=== PATIENT | male | born 1945 | race Caucasian/White ===

== ENCOUNTER 2022-05-31 15:24 | Emergency (ER) | payer BC, MEDICARE ==
[~2022-05-31] VITALS: Ht 172.7 cm; Wt 79.0 kg
[2022-05-31] MEDS ORDERED: tranexamic acid inj. 1,000 MG in normal saline 100ml IV soln 90 ML IV ONE (16:00)
[2022-05-31] MEDS ORDERED: tranexamic acid 1gm/0.7% sal. 100 ML IV ONE (16:00)
[2022-05-31 16:15] VITALS: BP_DIAS 114
[2022-05-31] MEDS ORDERED: hydrALAZINE 20mg/ml inj. IV ONE (16:30)
[2022-05-31 16:36] LABS: BASOPHILS % (AUTO) 0.3 % (0-1); EOSINOPHILS # (AUTO) 0.1 X10'3 (0-0.9); EOSINOPHILS % (AUTO) 1.2 % (0-6); LYMPHOCYTES # (AUTO) 0.7 X10'3 (1.1-4.8); MEAN PLATELET VOLUME 7.7 FL (7.4-10.4); MONOCYTES # (AUTO) 0.5 X10'3 (0-0.9); MONOCYTES % (AUTO) 6.8 % (2-12); NEUTROPHILS # (AUTO) 6.2 X10'3 (1.8-7.7); NEUTROPHILS % (AUTO) 82.7 % (42-75); PLATELET COUNT 269 X10'3 (140-440); WHITE BLOOD COUNT 7.5 X10'3 (4.5-11.0)
[2022-05-31 16:37] VITALS: BP_SYST 181
[2022-05-31 16:47] LABS: ALANINE AMINOTRANSFERASE 21 U/L (12-78); ALBUMIN 3.7 G/DL (3.4-5.0); ALBUMIN/GLOBULIN RATIO 1.3 (1.1-1.5); ALKALINE PHOSPHATASE 70 IU/L (46-116); ANION GAP 12 (8-16); ASPARTATE AMINO TRANSFERASE 26 U/L (10-37); BILIRUBIN,TOTAL 0.7 MG/DL (0.1-1.0); BLOOD UREA NITROGEN 27 MG/DL (7-18); BUN/CREATININE RATIO 25.7 (5.4-32.0); CALCIUM 8.9 MG/DL (8.5-10.1); CHLORIDE 105 MMOL/L (99-107); CREATININE 1.05 MG/DL (0.60-1.10); GLUCOSE 100 MG/DL (70-104); MAGNESIUM 2.2 MG/DL (1.5-2.4); POTASSIUM 3.7 MMOL/L (3.5-5.1); SODIUM 140 MMOL/L (135-145); TOTAL CARBON DIOXIDE 23.1 MMOL/L (24-32); TOTAL PROTEIN 6.5 G/DL (6.4-8.2); eGFR 69 ML/MIN
[2022-05-31] MEDS ORDERED: fentaNYL/PF 50MCG/1 ML 2ML syringe ONE (16:53)
[2022-05-31] MEDS ORDERED: fentaNYL/PF 50MCG/1 ML 2ML syringe IV ONE (16:55)
[2022-05-31 17:00] LABS: HEMATOCRIT 40.1 % (42.0-52.0); HEMOGLOBIN 14.4 g/dl (14.0-17.9); MEAN CORPUSCULAR HEMOGLOBIN 35.3 PG (27.0-31.0); MEAN CORPUSCULAR HGB CONC 35.8 g/dL (33.0-36.5); MEAN CORPUSCULAR VOLUME 98.5 FL (78-98); RED BLOOD COUNT 4.07 X10'6 (4.70-6.10); RED CELL DISTRIBUTION WIDTH 12.5 % (11.5-14.5)
== END 2022-05-31 17:05 | disposition short-term general hospital (02) ==
LOC: ER 15:25
DX: S06.5XAA Traumatic subdural hemorrhage with loss of consciousness status unknown, initial encounter (principal); W18.39XA Other fall on same level, initial encounter; Y93.89 Activity, other specified; Y92.89 Other specified places as the place of occurrence of the external cause; Y99.8 Other external cause status
CPT/HCPCS: 70450; 71045; 72125; 73110; 80053; 83735; 85025; 96365; 96375; 99291; 99292; J0360; J3010; J3490

== ENCOUNTER 2023-02-25 15:56 | Outpatient (CLI) | payer MEDICARE | END 2023-02-25 23:59 | disposition home or self-care (01) | LOC: RAD 15:56 | PROVIDERS: ATTEND Family Medicine | DX: I67.82 Cerebral ischemia (principal); R41.0 Disorientation, unspecified | CPT/HCPCS: 70551 ==

== ENCOUNTER 2023-06-03 09:09 | Outpatient (CLI) | payer MEDICARE | END 2023-06-03 23:59 | disposition home or self-care (01) | LOC: RT 09:09 | PROVIDERS: ATTEND Family Medicine | DX: J44.9 Chronic obstructive pulmonary disease, unspecified (principal) | CPT/HCPCS: 94618 ==

== ENCOUNTER 2024-05-31 13:08 | Outpatient (CLI) | payer MEDICARE | END 2024-05-31 23:59 | disposition home or self-care (01) | LOC: MRI02 13:08 | PROVIDERS: ATTEND Family Medicine | DX: M51.372 Other intervertebral disc degeneration, lumbosacral region with discogenic back pain and lower extremity pain (principal); M48.07 Spinal stenosis, lumbosacral region; M43.16 Spondylolisthesis, lumbar region | CPT/HCPCS: 72148 ==

== ENCOUNTER 2025-03-28 11:49 | Outpatient (CLI) | payer MEDICARE ==
--- NOTE | 2025-03-28 12:52 | RADIOLOGY REPORT ---
EXAM: MR MRI LUMBAR SPINE CLINICAL HISTORY: LOW BACK PAIN COMPARISON: MR MRI LUMBAR SPINE on DOS: 05/31/24, CT CERVICAL SPINE on DOS: 05/31/22 TECHNIQUE: MRI imaging of the lumbar was performed on a MRI imaging system without intravenous contrast. FINDINGS: Postsurgical changes L4-5. Grade 1 retrolisthesis of L2 on L3, L3 on L4, and L4 on L5. There are dege nerative endplate changes including modic endplate changes with anterior and lateral osteophytes thro ughout the lumbar spine. No compression fracture. The visualized distal spinal cord and conus medulla ris are within normal limits. The conus medullaris appears to terminate within normal limits. The vis ualized retroperitoneal and paraspinal soft tissues are unremarkable. The following axial levels are detailed below: T12-L1: Unremarkable. L1-L2: Unremarkable. L2-L3: There is a moderate circumferential disc bulge associated with mild to moderate bilateral neur oforaminal stenosis. No significant central canal stenosis. L3-L4: There is a moderate circumferential disc bulge associated with mild to moderate bilateral neur oforaminal stenosis. No significant central canal stenosis. L4-L5: There is a moderate circumferential disc bulge associated with moderate to severe bilateral ne uroforaminal stenosis. No significant central canal stenosis. L5-S1: There is a moderate circumferential disc bulge associated with moderate to severe bilateral ne uroforaminal stenosis. No significant central canal stenosis. IMPRESSION: No interval change. 1. Multilevel degenerative disease. No significant central canal stenosis. Neural foraminal stenosis as above worst at L5-S1. Postsurgical changes L4-5.
== END 2025-03-28 23:59 | disposition home or self-care (01) ==
LOC: MRI02 11:49
PROVIDERS: ATTEND Family Medicine
DX: M51.17 Intervertebral disc disorders with radiculopathy, lumbosacral region (principal); M54.50 Low back pain, unspecified; M48.07 Spinal stenosis, lumbosacral region; M47.27 Other spondylosis with radiculopathy, lumbosacral region
CPT/HCPCS: 72148

== ENCOUNTER 2025-04-15 13:59 | Outpatient (CLI) | payer MEDICARE ==
--- NOTE | 2025-04-15 15:24 | RADIOLOGY REPORT ---
EXAM: CT CT LUMBAR SPINE HISTORY: RADICULOPATHY, LUMBAR REGION COMPARISON: MR MRI LUMBAR SPINE on DOS: 03/28/25, MR MRI LUMBAR SPINE on DOS: 05/31/24, CT CERVICAL SPINE on DOS: 05/31/22 CTDIvol mGy, DLP mGy*cm. TECHNIQUE: Multiple axial CT images of the spine were obtained using bone algorithm. Axial and coronal reformatting was done. Bone and soft tissue windows were reviewed. FINDINGS: No evidence of definite acute fracture, spinal dislocation, or significant appearing acute subluxation is seen. Vascular calcifications of the aorta. Multilevel degenerative changes of the spine. Posterior elements spinal hardware at L4-L5. Degenerative disc space narrowing at L4-L5. Suggestion of possible mild canal stenosis at L2-L3, L3-L4, L4-L5 and L5-S1. IMPRESSION: No definite CT evidence of acute fracture or dislocation of the bony lumbar spine.
== END 2025-04-15 23:59 | disposition home or self-care (01) ==
LOC: RAD 13:59
PROVIDERS: ATTEND Neurological Surgery
DX: M47.26 Other spondylosis with radiculopathy, lumbar region (principal); M48.061 Spinal stenosis, lumbar region without neurogenic claudication; M51.16 Intervertebral disc disorders with radiculopathy, lumbar region; I70.0 Atherosclerosis of aorta
CPT/HCPCS: 72131